=== PATIENT | male | born 1995 | race Caucasian/White ===

== ENCOUNTER 2017-06-13 19:15 | Emergency (ER) | payer SELFPAY ==
[~2017-06-13] VITALS: Ht 175.3 cm; Wt 76.2 kg
[2017-06-13 19:24] VITALS: BP 136/83
[2017-06-13] MEDS ORDERED: EPINEPHRINE 1 MG/ML, 1ML ONE (19:37)
[2017-06-13] MEDS ORDERED: DIPHENHYDRAMINE 50 MG CAPSULE ONE (19:37)
[2017-06-13] MEDS ORDERED: FAMOTIDINE 20 MG TABLET ONE (19:38)
[2017-06-13] MEDS ORDERED: EPINEPHRINE 1 MG/ML, 1ML IM ONE (20:00)
[2017-06-13] MEDS ORDERED: FAMOTIDINE 20 MG TABLET PO ONE (20:00)
[2017-06-13] MEDS ORDERED: DIPHENHYDRAMINE 25 MG CAPSULE PO ONE (20:00)
== END 2017-06-13 21:43 | disposition home or self-care (01) ==
LOC: ED 21:30
DX: T78.3XXA Angioneurotic edema, initial encounter (principal); T78.1XXA Other adverse food reactions, not elsewhere classified, initial encounter; X58.XXXA Exposure to other specified factors, initial encounter; Y93.89 Activity, other specified; Y99.8 Other external cause status; Y92.89 Other specified places as the place of occurrence of the external cause
CPT/HCPCS: 96372; 99284; J0171; J7512; Q0163